=== PATIENT | male | born 1975 | race Caucasian/White ===

== ENCOUNTER 2017-02-15 04:09 | Day surgery (SDC) | payer BC ==
[2017-02-09 17:07] LABS: HEMATOCRIT 46.4 % (40.0-51.0); HEMOGLOBIN 15.8 g/dL (13.6-17.8)
--- NOTE | ~2017-02-15 | OP ---
Record Of Operation [facility] [address] [place]. [address] NAME: ABEL SHELDON : 75 STATUS : REG [facility] [place] PAT#: [id number] AGE: 41 ADM/REG DATE : 02/15/17 MR#: [id number] REPORT SERV DATE: 02/15/17 DICTATED BY: BENITO ISIDRO DATE: 02/15/17 REPORT STATUS : Draft TRANSCRIBED BY: MODL DATE: 02/15/17 DATE OF PROCEDURE: 02/15/2017 PREOPERATIVE DIAGNOSES: 1. Lumbar spinal stenosis with radiculopathy, left L3-4, L4-5. 2. Herniated nucleus pulposus, left L3-4, L4-5. POSTOPERATIVE DIAGNOSES: 1. Lumbar spinal stenosis with radiculopathy, left L3-4, L4-5. 2. Herniated nucleus pulposus, left L3-4, L4-5. PROCEDURE: Microscopic navigation-assisted left L3-4, L4-5 hemilaminotomy, foraminotomy, and microdiskectomy. SURGEON: Benito Isidro DO PRINCIPAL PRODUCT MANAGER: Joo Javier. ANESTHESIA: General. BLOOD LOSS: 15 mL. INDICATIONS FOR SURGERY: A 41-year-old male with low back pain, left hip and leg pain that follows mostly an L4 and L5 distribution. The pain has been present for several weeks and worsening. The pain is worse with standing and walking. Nothing relieves the pain completely. The pain is rated 8/10. The plain x-rays reveal some loss of disk height at L3 4, L4-5 levels. MRI shows calcified ligamentum flavum particularly at L4-5 causing rather marked lateral recess and medial foraminal stenosis. MRI also proves that there is some disk herniation at L3-4 with as well some lateral recess stenosis secondary to ligamentum flavum hypertrophy. The patient is brought to surgery for the above procedure having failed conservative care. Prior to surgery, risks, benefits, alternatives, and expectations were explained. Consent form is signed. Please note that because of the complexity of the surgery and the need to identify correct level of surgery intraoperatively as well as desire to carry out the safest and most precise dissection with the least amount of radiation exposure, I feel intraoperative navigation is mandatory. DESCRIPTION OF PROCEDURE: Antibiotic prophylaxis given. Neurophysiology monitoring leads inserted. The patient was brought to the operative suite, general anesthetic including endotracheal intubation was administered. He was placed prone on a Jono spine frame. Bony prominences were carefully padded. Thoracolumbar spine was scrubbed with Hibiclens solution. DuraPrep was painted. Sterile drapes applied. A small stab wound was carried out over the right posterior superior iliac spine. A percutaneous pin with navigational frame attached was inserted in PSIS. Intraoperative CT Record Of Operation [facility] [address] [place]. [address] NAME: ABEL SHELDON : 75 STATUS : REG [facility] [place] PAT#: [id number] AGE: 41 ADM/REG DATE : 02/15/17 MR#: [id number] REPORT SERV DATE: 02/15/17 DICTATED BY: BENITO ISIDRO DATE: 02/15/17 REPORT STATUS : Draft TRANSCRIBED BY: STEVAN DATE: 02/15/17 scan with O-arm obtained, CT information used to register the navigational system. With navigational assistance, I identified the left L3-4, L4-5 levels. I carried out a single incision detention between the two interlaminar spaces, incision was approximately 2 cm in length. Initially, I placed a blunt navigated probe through the fascia and muscle and docked over the L4-5 interlaminar space. Muscle dilators were inserted followed by placement of a tubular retractor attached to an arm mount on the table. The microscope was sterilely draped and used throughout the remainder of procedure. With navigational assistance. I identified the amount of lamina of L4 that I needed to remove. With the intraoperative CT scan, I could also much better confirm that this was definitely a calcified ligamentum flavum and I thus decided I had to go all the way to the proximal insertion as well as the distal insertion of the ligamentum flavum. I used a 3 mm gabino bur to remove 60% of the lamina of L4, approximately 25% of medial facet joint was removed, and approximately 10% of the proximal lamina of L5 removed. I then was able to mobilize a very large, very compressive hypertrophy of ligamentum flavum that was calcified and was causing significant lateral recess stenosis. The thecal sac and the foramina were completely decompressed. I inspected the disk space and a small disk protrusion, which was debrided. The wounds were irrigated. The retractor was removed. I then moved to L3-4, I placed a tubular retractor again through a separate fascial opening. After removing approximately 30% of the lamina of L3 using the same technique, I was able remove the moderately thickened hypertrophied ligamentum flavum, which decompress the lateral recess. I then mobilized the thecal sac and the nerve root, and I was able to mobilize the thecal sac medially. I found an extruded disk herniation below the disk space. This fragment was removed with a pituitary rongeur. The wound was irrigated. The retractor was removed. No bleeding was noted. The fascial openings were closed with a single interrupted #1 Vicryl suture. Subcutaneous tissue closed with 2-0 Vicryl sutures. 2-0 vertical mattress nylon suture used for skin closure. Sterile dressings applied. The patient awakened, extubated, taken to recovery room in satisfactory condition having tolerated procedure well. Sponge, needle, and instrument counts were correct. No intraoperative complications noted. ARIAN/STEVAN Benito Isidro D.O. / [id number] CC: Benito Isidro D.O.
[~2017-02-15 04:09] MED LIST: METHOC750B PO; NORCO1 TA1 PO
== END 2017-02-15 14:42 | disposition home or self-care (01) ==
LOC: SDC 04:09
PROVIDERS: Orthopaedic Surgery Orthopaedic Surgery of the Spine
PROC: 0SB20ZZ Excision of Lumbar Vertebral Disc, Open Approach (ICD-10-PCS; principal; 2017-02-15 05:45)
PROC: 01NB0ZZ Release Lumbar Nerve, Open Approach (ICD-10-PCS; 2017-02-15 05:45)
DX: M51.16 Intervertebral disc disorders with radiculopathy, lumbar region (principal); M48.06 Spinal stenosis, lumbar region; Z88.0 Allergy status to penicillin; Z79.899 Other long term (current) drug therapy; Z98.890 Other specified postprocedural states
CPT/HCPCS: 36415; 85014; 85018; 88304; 88311; A9270-GY; J0690; J2250; J2274; J2405; J2710; J3010